=== PATIENT | male | born 1970 | race Caucasian/White ===

== ENCOUNTER 2019-10-21 14:25 | Inpatient (IN) | payer OTHER ==
[~2019-10-21] VITALS: Ht 182.9 cm; Wt 103.0 kg
[2019-10-21 15:09] LABS: BASO # 0.1 x10^3/uL (0.0-0.2); BASO % 1 % (0-3); EOS # 0.3 x10^3/uL (0.0-0.7); EOS % 5 % (0-3); HEMATOCRIT 41.8 % (39.0-53.0); HEMOGLOBIN 14.6 g/dL (13.0-17.5); LYMPH # 2.7 x10^3/uL (1.0-4.8); LYMPH % 40 % (24-48); MEAN CORPUSCULAR HEMOGLOBIN 32 pg (25-35); MEAN CORPUSCULAR HGB CONC 35 g/dL (31-37); MEAN CORPUSCULAR VOLUME 92 fL (79-100); MONO # 0.5 x10^3/uL (0.0-1.1); MONO % 8 % (0-9); NEUT # 3.1 x10^3/uL (1.8-7.7); NEUT % 46 % (31-73); PLATELET COUNT 304 x10^3/uL (140-400); RED BLOOD COUNT 4.52 x10^6/uL (4.30-5.70); RED CELL DISTRIBUTION WIDTH 13.2 % (11.5-14.5); WHITE BLOOD COUNT 6.8 x10^3/uL (4.0-11.0)
[2019-10-21 15:18] LABS: CALCIUM 8.7 mg/dL (8.5-10.1); CREATININE 1.1 mg/dL (0.7-1.3); GFR 72.1; POTASSIUM 3.7 mmol/L (3.5-5.1)
--- NOTE | 2019-10-21 15:20 | RAD ---
Exam performed: One view chest. Indication: Reason: palpiatations / Spl. Instructions: / History: Date of Service: 10/21/2019 3:02 PM Comparison: None available. Single AP upright portable view chest findings: Cardiomediastinal silhouette is mildly enlarged. No acute infiltrates, effusion or pneumothorax is detected. The bony structures are normal. Impression: Mild cardiomegaly. No acute pulmonary findings seen Electronically signed by: Marisa Awad MD (10/21/2019 3:17 PM) [facility]
[2019-10-21 15:24] LABS: ALBUMIN 3.8 g/dL (3.4-5.0); MAGNESIUM 1.7 mg/dL (1.8-2.4); TOTAL BILIRUBIN 0.3 mg/dL (0.2-1.0); TOTAL PROTEIN 7.8 g/dL (6.4-8.2)
--- NOTE | 2019-10-21 15:38 | PHYS DOC ---
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 Symptoms lasted for approximately 20 minutes and started while he was at rest watching TV, supposed to go to work at 4 PM. Patient states he has had history of similar symptoms a few years ago but only lasted for about 10 minutes and did not seek medical attention. States he drinks a half a pint of hard liquor daily, no history of withdrawal seizures or tremors. Denies any cocaine or methamphetamine abuse. States he stopped taking lisinopril 5 to 6 years ago. Symptoms have almost fully resolved but now c/o anxiety and increased stress because of his rapid heart rate. Recent trauma, surgeries, hospitalizations, long car rides or airplane rides. No history of DVT or PE. Mother with history of pacemaker and ACS. Father with history of hypertension. No family history of sudden unexplained under the age of 50, aortic disease or connective tissue disorder. ROS: Denies associated fever, chills, cough, dyspnea, hemoptysis, orthopnea, chest pain described as tearing or ripping, back pain, abdominal pain, nausea, vomiting, diarrhea, anorexia, leg swelling, rash, sore throat, headache, neck stiffness, head injury or dizziness. Heart Score: HEART Score for Chest Pain: HEART Score for Chest Pain Response (Comments) Value History Slighlty/Non-Suspicious 0 ECG Normal 0 Age >45 - < 65 1 Risk Factors >3 Risk Factors or Hx CAD 2 Total 3 Risk Factors: Risk Factors: DM, Current or recent (<one month) smoker, HTN, HLP, family history of CAD, obesity. Risk Scores: Score 0 - 3: 2.5% MACE over next 6 weeks - Discharge Home Score 4 - 6: 20.3% MACE over next 6 weeks - Admit for Clinical Observation Score 7 - 10: 72.7% MACE over next 6 weeks - Early Invasive Strategies Current Medications: Current Medications Medications (Trade) Dose Ordered Sig/Marlo Start Time Stop Time Status Last Admin Dose Admin Lorazepam (Ativan Inj) 1 mg 1X ONCE 10/21/19 15:15 10/21/19 15:16 DC 10/21/19 15:20 1 MG Allergies: Allergies: Allergies Coded Allergies Type Severity Reaction Last Updated Verified naproxen Allergy Intermediate Rash 10/21/19 Yes Physical Exam: PE: Constitutional: Well developed, well nourished, no acute distress, non-toxic appearance. [] HENT: Normocephalic, atraumatic, Eyes: EOMI, conjunctiva normal, no discharge. [] Neck: Normal range of motion, no tenderness, supple, no stridor. [] Cardiovascular: sinus tachycardiaLungs & Thorax: Bilateral breath sounds clear to auscultation [] Abdomen: Bowel sounds normal, soft, no tenderness, no masses, no pulsatile masses. [] Skin: Warm, dry, no erythema, no rash. [] Back: No tenderness, no CVA tenderness. [] Extremities: No tenderness, no cyanosis, no clubbing, ROM intact, no edema, no tremors Neurologic: Alert and oriented X 3, normal motor function, normal sensory function, no focal deficits noted. [] Psychologic: Affect normal, judgement normal, slight anxious Current Patient Data: Labs: Laboratory Tests Test 10/21/19 14:33 White Blood Count 6.8 x10^3/uL (4.0-11.0) Red Blood Count 4.52 x10^6/uL (4.30-5.70) Hemoglobin 14.6 g/dL (13.0-17.5) Hematocrit 41.8 % (39.0-53.0) Mean Corpuscular Volume 92 fL (79-100) Mean Corpuscular Hemoglobin 32 pg (25-35) Mean Corpuscular Hemoglobin Concent 35 g/dL (31-37) Red Cell Distribution Width 13.2 % (11.5-14.5) Platelet Count 304 x10^3/uL (140-400) Neutrophils (%) (Auto) 46 % (31-73) Lymphocytes (%) (Auto) 40 % (24-48) Monocytes (%) (Auto) 8 % (0-9) Eosinophils (%) (Auto) 5 % (0-3) H Basophils (%) (Auto) 1 % (0-3) Neutrophils # (Auto) 3.1 x10^3/uL (1.8-7.7) Lymphocytes # (Auto) 2.7 x10^3/uL (1.0-4.8) Monocytes # (Auto) 0.5 x10^3/uL (0.0-1.1) Eosinophils # (Auto) 0.3 x10^3/uL (0.0-0.7) Basophils # (Auto) 0.1 x10^3/uL (0.0-0.2) Sodium Level 141 mmol/L (136-145) Potassium Level 3.7 mmol/L (3.5-5.1) Chloride Level 103 mmol/L (98-107) Carbon Dioxide Level 28 mmol/L (21-32) Anion Gap 10 (6-14) Blood Urea Nitrogen 12 mg/dL (8-26) Creatinine 1.1 mg/dL (0.7-1.3) Estimated GFR (Cockcroft-Gault) 72.1 BUN/Creatinine Ratio 11 (6-20) Glucose Level 130 mg/dL (70-99) H Calcium Level 8.7 mg/dL (8.5-10.1) Magnesium Level 1.7 mg/dL (1.8-2.4) L Total Bilirubin 0.3 mg/dL (0.2-1.0) Aspartate Amino Transferase (AST) 39 U/L (15-37) H Alanine Aminotransferase (ALT) 75 U/L (16-63) H Alkaline Phosphatase 90 U/L (46-116) Troponin I Quantitative < 0.017 ng/mL (0.000-0.055) Total Protein 7.8 g/dL (6.4-8.2) Albumin 3.8 g/dL (3.4-5.0) Albumin/Globulin Ratio 1.0 (1.0-1.7) Laboratory Tests 10/21/19 14:33 Laboratory Tests 10/21/19 14:33 Vital Signs: Vital Signs Date Time Temp Pulse Resp B/P (MAP) Pulse Ox O2 Delivery O2 Flow Rate FiO2 10/21/19 14:27 98.2 111 16 232/136 (168) 99 Room Air 98.2 EKG: EKG: Sinus tachycardia at 117 bpm, no axis deviation, normal intervals, no terminal R in AVR, T wave inversion lead III and aVF, no ST elevations or ST depressions Howie EKG was sinus tachycardia at 147 bpm, no axis deviation, normal intervals, T wave inversion in 3 and aVF, no ST elevations or ST depressions no Q waves Radiology/Procedures: Radiology/Procedures: IMAGING REPORT Signed 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 PHYSICIAN: MONIKA RUCKER DO REASON: palpiatations PROCEDURE: CHEST AP ONLY Exam performed: One view chest. Indication: Reason: palpiatations / Spl. Instructions: / History: Date of Service: 10/21/2019 3:02 PM Comparison: None available. Single AP upright portable view chest findings: Cardiomediastinal silhouette is mildly enlarged. No acute infiltrates, effusion or pneumothorax is detected. The bony structures are normal. Impression: Mild cardiomegaly. No acute pulmonary findings seen Electronically signed by: Marisa Awad MD (10/21/2019 3:17 PM) [facility] DICTATED and SIGNED BY: MARISA AWAD MD DATE: 10/21/19 1517 Course & Med Decision Making: Course & Med Decision Making Pertinent Labs and Imaging studies reviewed. (See chart for details) Concern for sinus tachycardia and palpitations (no apparent signs of infection) in the setting of uncontrolled hypertension with no end organ damage, ekg with inferior TWIs. Patient with no active chest pain, difficulties breathing and is not confused. Chest x-ray showing cardiomegaly. Troponin is negative. D- dimer wnl. Patient's heart rate increased to the ED in the ED up to 150 and was started on banana bag, IV fluids and given 2 mg of Ativan. Concern for alcohol w/drawal. Was started on nicardipine drip. Will admit to the ICU, accepted by Dr. Estevez. Patient stable at time of admission and agrees with this plan. I have spoken with the patient and/or caregivers. I have explained the patient's condition, diagnosis and treatment plan based on the information available to me at this time. I have answered the patient's and/or caregivers questions and answered any concerns. The patient and/or caregivers have as good an understanding of the patient's diagnosis, condition and treatment plan as can be expected at this point. The patient has been stabilized within the capability of the emergency department. The patient will be transported for further care and management or will be moved to an observation or inpatient service. I have communicated with the staff or medical practitioner taking over this patient's care. Critical Care: Authorized and Performed by: Monika Rucker DO Total critical care time: approximately 40 minutes Due to a high probability of clinically significant, life threatening deterioration, the patient required my highest level of preparedness to intervene emergently and I personally spent this critical care time directly and personally managing the patient. This critical care time included obtaining a history; examining the patient; pulse oximetry; ventilator management if necessary; ordering and review of studies; arranging urgent treatment with devel opment of a management plan; evaluation of patient's response to treatment; frequent reassessment; discussion with patient/family; and, discussions with other providers. This critical care time was performed to assess and manage the high probability of imminent, life-threatening deterioration that could result in multi-organ failure. It was exclusive of separately billable procedures and treating other patients and teaching time. Please see MDM section and the rest of the note for further information on patient assessment and treatment. Dragon Disclaimer: Dragon Disclaimer: This electronic medical record was generated, in whole or in part, using a voice recognition dictation system. Departure Departure Impression: Primary Impression: Palpitations Additional Impressions: Sinus tachycardia Cardiomegaly Uncontrolled hypertension Disposition: ADMITTED INPATIENT Admitting Physician: LUPIS (Dr. Estevez) Condition: STABLE Referrals: NO PCP (PCP) Justicifation of Admission Dx: Justifications for Admission: Justification of Admission Dx: Yes Hypertension: Unstable Variant MONIKA RUCKER DO Oct 21, 2019 15:38
[2019-10-21 16:30] LABS: BARBITURATES NEG (NEG); BENZODIAZEPINES POS (NEG); CANNABINOIDS NEG (NEG); COCAINE NEG (NEG); METHADONE NEG (NEG); OPIATES NEG (NEG); PHENCYCLIDINE NEG (NEG)
[2019-10-21 16:31] LABS: AMPHETAMINE/METHAMPHETAMINE NEG (NEG)
[2019-10-21 17:19] LABS: BILIRUBIN,URINE NEGATIVE (NEG); CLARITY,URINE CLEAR; COLOR,URINE YELLOW; NITRITE,URINE NEGATIVE (NEG); PH,URINE 7.5 (<5.0-8.0); PROTEIN,URINE NEGATIVE (NEG-TRACE); UROBILINOGEN,URINE 0.2 mg/dL (0.2 mg/dL)
[2019-10-21 17:24] LABS: BACTERIA,URINE 0 /HPF (0-FEW); RBC,URINE 0 /HPF (0-2); WBC,URINE 0 /HPF (0-4)
[2019-10-21] MEDS ORDERED: hydrALAZINE 20 MG/ML VIAL. IVP ONE (17:45)
[2019-10-21] MEDS ORDERED: IV NORMAL SALINE 1000ML BAG 1,000 ML IV ONE (18:15)
[2019-10-21] MEDS ORDERED: ONDANSETRON PF 4 MG/2 ML VIAL. IV PRN (18:30)
[2019-10-21] MEDS ORDERED: MULTIVIT INFUSN,ADULT 4,VIT K 10 ML, THIAMINE INJ 100 MG, FOLIC ACID INJ 1 MG in IV NOR... IV ONE (18:30)
--- NOTE | 2019-10-21 18:39 | PDOC1 ---
History and Physical Date of Service: DOS: DATE: 10/21/19 TIME: 18:33 Chief Complaint: Chief Complain: Palpitations History of Present Illness: HPI: 48-year-old male past medical history of hypertension, does not take any medications, presents the ED with complaints of left-sided chest pressure and palpitations states he thought he was going to pass out. Symptoms lasted for approximately 20 minutes and started while he was at rest watching TV, supposed to go to work at 4 PM. Patient states he has had history of similar symptoms a few years ago but only lasted for about 10 minutes and did not seek medical attention. States he drinks a half a pint of hard liquor daily, no history of withdrawal seizures or tremors. Denies any cocaine or methamphetamine abuse. States he stopped taking lisinopril 5 to 6 years ago. Symptoms have almost fully resolved but now c/o anxiety and increased stress because of his rapid heart rate. Recent trauma, surgeries, hospitalizations, long car rides or airplane rides. No history of DVT or PE. ROS: Denies associated fever, chills, cough, dyspnea, hemoptysis, orthopnea, chest pain described as tearing or ripping, back pain, abdominal pain, nausea, vomiting, diarrhea, anorexia, leg swelling, rash, sore throat, headache, neck stiffness, head injury or dizziness. Past Medical/Surgical History: PMH/PSH: Past Medical History: Hypertension Past Surgical History: No Surgical History Allergies: Allergies: Coded Allergies: naproxen (Verified Allergy, Intermediate, Rash, 10/21/19) Family History: Family History: No family history of sudden unexplained under the age of 50, aortic disease or connective tissue disorder. Mother with history of pacemaker and ACS. Father with history of hypertension. 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 Patient usually will have at least 1 drink 5 days/week Current Medications: Current Medications Current Medications Lorazepam (Ativan Inj) 1 mg 1X ONCE IVP Last administered on 10/21/19at 15:20; Start 10/21/19 at 15:15; Stop 10/21/19 at 15:16; Status DC Hydralazine HCl (Apresoline Inj) 20 mg 1X ONCE IVP Last administered on 10/21/19at 17:45; Start 10/21/19 at 17:45; Stop 10/21/19 at 17:46; Status DC Lorazepam (Ativan Inj) 2 mg 1X ONCE IVP Last administered on 10/21/19at 18:13; Start 10/21/19 at 18:30; Stop 10/21/19 at 18:31; Status DC Multivitamins 10 ml/Thiamine HCl 100 mg/Folic Acid 1 mg/Sodium Chloride 1,011.2 ml @ 1,000.088 mls/hr 1X ONCE IV Last administered on 10/21/19at 18:19; Start 10/21/19 at 18:30; Stop 10/21/19 at 19:30 Sodium Chloride 1,000 ml @ 1,000 mls/hr 1X ONCE IV Last administered on 10/21/19at 18:13; Start 10/21/19 at 18:15; Stop 10/21/19 at 19:14 Nicardipine HCl 50 mg/Sodium Chloride 250 ml @ 25 mls/hr CONT PRN IV SEE I/O RECORD; Start 10/21/19 at 18:30 ROS: Review of Systems Review of System REVIEW OF SYSTEMS: GENERAL: Denies weakness SKIN: No bruising, hair changes or rashes. EYES: No blurred, double or loss of vision. NOSE AND THROAT: No history of nosebleeds, hoarseness or sore throat. HEART: No history of palpitations, chest pain or shortness of breath on exertion. LUNGS: Denies cough, hemoptysis, wheezing or shortness of breath. GASTROINTESTINAL: Denies changes in appetite, nausea, vomiting, diarrhea or constipation. GENITOURINARY: No history of frequency, urgency, hesitancy or nocturia. NEUROLOGIC: Denies history of numbness, tingling, or tremor. PSYCHIATRIC: No history of panic, anxiety or depression. ENDOCRINE: No history of heat or cold intolerance, polyuria or polydipsia. EXTREMITIES: Denies joint pain, pain on walking or stiffness. Physical Exam: Vital Signs: Vital Signs Date Time Temp Pulse Resp B/P (MAP) Pulse Ox O2 Delivery O2 Flow Rate FiO2 10/21/19 17:45 105 219/125 10/21/19 17:13 98 Room Air 10/21/19 14:30 20 10/21/19 14:27 98.2 98.2 Physcial Exam: GEN: No apparent distress. Alert and oriented HEENT: Normal cephalic, atraumatic, external auditory canals are patent EYES: Extraocular muscles are intact, pupil are equally round and reactive to light and accommodation MUSCULOSKELETAL: Well developed , well nourished, good range of motion ENDOCRINE: No thyromegaly was palpated LYMPHATICS: No cervical chain or axillary nodes were noted HEMATOPOIETIC: No bruising NECK: Supple, no JVD, no thyromegaly was noted LUNGS: Clear to auscultation in all lung mejia without rhonchi or wheezing HEART: RRR, S!, S2 present. Peripheral pulses intact, no obvious murmurs noted ABDOMEN: Soft, nontender. Positive bowel sounds, no organomegaly, normal bowel sounds EXTREMITIES: Without clubbing, cyanosis, or edema. Pedal pulses intact. Negative Homans sign NEUROLOGIC: Normal speech and tone. A&O x 3, moves all extremities, no obvious focal deficits PSYCHIATRIC: Normal affect, normal mood. Stable SKIN: No ulcerations or rashes, good skin turgor, no jaundice VASCULAR: Good capillary refill, neurovascular bundle appears to be intact Labs: Labs: Laboratory Tests Test 10/21/19 14:33 10/21/19 16:15 White Blood Count 6.8 x10^3/uL (4.0-11.0) Red Blood Count 4.52 x10^6/uL (4.30-5.70) Hemoglobin 14.6 g/dL (13.0-17.5) Hematocrit 41.8 % (39.0-53.0) Mean Corpuscular Volume 92 fL (79-100) Mean Corpuscular Hemoglobin 32 pg (25-35) Mean Corpuscular Hemoglobin Concent 35 g/dL (31-37) Red Cell Distribution Width 13.2 % (11.5-14.5) Platelet Count 304 x10^3/uL (140-400) Neutrophils (%) (Auto) 46 % (31-73) Lymphocytes (%) (Auto) 40 % (24-48) Monocytes (%) (Auto) 8 % (0-9) Eosinophils (%) (Auto) 5 % (0-3) Basophils (%) (Auto) 1 % (0-3) Neutrophils # (Auto) 3.1 x10^3/uL (1.8-7.7) Lymphocytes # (Auto) 2.7 x10^3/uL (1.0-4.8) Monocytes # (Auto) 0.5 x10^3/uL (0.0-1.1) Eosinophils # (Auto) 0.3 x10^3/uL (0.0-0.7) Basophils # (Auto) 0.1 x10^3/uL (0.0-0.2) D-Dimer (Cindy) < 0.27 ug/mlFEU Sodium Level 141 mmol/L (136-145) Potassium Level 3.7 mmol/L (3.5-5.1) Chloride Level 103 mmol/L (98-107) Carbon Dioxide Level 28 mmol/L (21-32) Anion Gap 10 (6-14) Blood Urea Nitrogen 12 mg/dL (8-26) Creatinine 1.1 mg/dL (0.7-1.3) Estimated GFR (Cockcroft-Gault) 72.1 BUN/Creatinine Ratio 11 (6-20) Glucose Level 130 mg/dL (70-99) Calcium Level 8.7 mg/dL (8.5-10.1) Magnesium Level 1.7 mg/dL (1.8-2.4) Total Bilirubin 0.3 mg/dL (0.2-1.0) Aspartate Amino Transf (AST/SGOT) 39 U/L (15-37) Alanine Aminotransferase (ALT/SGPT) 75 U/L (16-63) Alkaline Phosphatase 90 U/L (46-116) Troponin I Quantitative < 0.017 ng/mL (0.000-0.055) Total Protein 7.8 g/dL (6.4-8.2) Albumin 3.8 g/dL (3.4-5.0) Albumin/Globulin Ratio 1.0 (1.0-1.7) Ethyl Alcohol Level < 10 mg/dL (0-10) Urine Collection Type Unknown Urine Color Yellow Urine Clarity Clear Urine pH 7.5 (<5.0-8.0) Urine Specific [place] 1.010 (1.000-1.030) Urine Protein Negative mg/dL (NEG-TRACE) Urine Glucose (UA) Negative mg/dL (NEG) Urine Ketones (Stick) Negative mg/dL (NEG) Urine Blood Negative (NEG) Urine Nitrite Negative (NEG) Urine Bilirubin Negative (NEG) Urine Urobilinogen Dipstick 0.2 mg/dL (0.2 mg/dL) Urine Leukocyte Esterase Negative (NEG) Urine RBC 0 /HPF (0-2) Urine WBC 0 /HPF (0-4) Urine Bacteria 0 /HPF (0-FEW) Urine Opiates Screen Neg (NEG) Urine Methadone Screen Neg (NEG) Urine Barbiturates Neg (NEG) Urine Phencyclidine Screen Neg (NEG) Urine Amphetamine/Methamphetamine Neg (NEG) Urine Benzodiazepines Screen Pos (NEG) Urine Cocaine Screen Neg (NEG) Urine Cannabinoids Screen Neg (NEG) Urine Ethyl Alcohol Neg (NEG) Laboratory Tests Test 10/21/19 14:33 10/21/19 16:15 White Blood Count 6.8 x10^3/uL (4.0-11.0) Red Blood Count 4.52 x10^6/uL (4.30-5.70) Hemoglobin 14.6 g/dL (13.0-17.5) Hematocrit 41.8 % (39.0-53.0) Mean Corpuscular Volume 92 fL (79-100) Mean Corpuscular Hemoglobin 32 pg (25-35) Mean Corpuscular Hemoglobin Concent 35 g/dL (31-37) Red Cell Distribution Width 13.2 % (11.5-14.5) Platelet Count 304 x10^3/uL (140-400) Neutrophils (%) (Auto) 46 % (31-73) Lymphocytes (%) (Auto) 40 % (24-48) Monocytes (%) (Auto) 8 % (0-9) Eosinophils (%) (Auto) 5 % (0-3) Basophils (%) (Auto) 1 % (0-3) Neutrophils # (Auto) 3.1 x10^3/uL (1.8-7.7) Lymphocytes # (Auto) 2.7 x10^3/uL (1.0-4.8) Monocytes # (Auto) 0.5 x10^3/uL (0.0-1.1) Eosinophils # (Auto) 0.3 x10^3/uL (0.0-0.7) Basophils # (Auto) 0.1 x10^3/uL (0.0-0.2) D-Dimer (Cindy) < 0.27 ug/mlFEU Sodium Level 141 mmol/L (136-145) Potassium Level 3.7 mmol/L (3.5-5.1) Chloride Level 103 mmol/L (98-107) Carbon Dioxide Level 28 mmol/L (21-32) Anion Gap 10 (6-14) Blood Urea Nitrogen 12 mg/dL (8-26) Creatinine 1.1 mg/dL (0.7-1.3) Estimated GFR (Cockcroft-Gault) 72.1 BUN/Creatinine Ratio 11 (6-20) Glucose Level 130 mg/dL (70-99) Calcium Level 8.7 mg/dL (8.5-10.1) Magnesium Level 1.7 mg/dL (1.8-2.4) Total Bilirubin 0.3 mg/dL (0.2-1.0) Aspartate Amino Transf (AST/SGOT) 39 U/L (15-37) Alanine Aminotransferase (ALT/SGPT) 75 U/L (16-63) Alkaline Phosphatase 90 U/L (46-116) Troponin I Quantitative < 0.017 ng/mL (0.000-0.055) Total Protein 7.8 g/dL (6.4-8.2) Albumin 3.8 g/dL (3.4-5.0) Albumin/Globulin Ratio 1.0 (1.0-1.7) Ethyl Alcohol Level < 10 mg/dL (0-10) Urine Collection Type Unknown Urine Color Yellow Urine Clarity Clear Urine pH 7.5 (<5.0-8.0) Urine Specific [place] 1.010 (1.000-1.030) Urine Protein Negative mg/dL (NEG-TRACE) Urine Glucose (UA) Negative mg/dL (NEG) Urine Ketones (Stick) Negative mg/dL (NEG) Urine Blood Negative (NEG) Urine Nitrite Negative (NEG) Urine Bilirubin Negative (NEG) Urine Urobilinogen Dipstick 0.2 mg/dL (0.2 mg/dL) Urine Leukocyte Esterase Negative (NEG) Urine RBC 0 /HPF (0-2) Urine WBC 0 /HPF (0-4) Urine Bacteria 0 /HPF (0-FEW) Urine Opiates Screen Neg (NEG) Urine Methadone Screen Neg (NEG) Urine Barbiturates Neg (NEG) Urine Phencyclidine Screen Neg (NEG) Urine Amphetamine/Methamphetamine Neg (NEG) Urine Benzodiazepines Screen Pos (NEG) Urine Cocaine Screen Neg (NEG) Urine Cannabinoids Screen Neg (NEG) Urine Ethyl Alcohol Neg (NEG) Images: Images Impression: Mild cardiomegaly. No acute pulmonary findings seen Assessment/Plan Assessment/Plan Hypertensive urgency EtOH use with concern for withdrawal Hypomagnesemia Mild transaminitis Obesity class I Justifications for Admission Other Justification HERI CHU MD Oct 21, 2019 18:39
[2019-10-21] MEDS ORDERED: DOCUSATE SODIUM 100 MG CAPSULE. PO PRN (18:45)
[2019-10-21] MEDS ORDERED: ONDANSETRON PF 4 MG/2 ML VIAL. IVP PRN (18:45)
[2019-10-21] MEDS ORDERED: POTASSIUM CHLORIDE 20 MEQ TABLET.ER. PO PRN ×3 (18:45)
[2019-10-21] MEDS ORDERED: MAGNESIUM SULFATE 4GM 100 ML IV PRN (18:45)
[2019-10-21] MEDS ORDERED: SENNOSIDES 8.6 MG TABLET PO PRN (18:45)
[2019-10-21] MEDS ORDERED: POTASSIUM CHLORIDE 10MEQ 100 ML IV PRN ×3 (18:45)
[2019-10-21] MEDS ORDERED: POTASSIUM CHLORIDE 20MEQ 100 ML IV PRN ×3 (18:45)
[2019-10-21] MEDS: IV NORMAL SALINE 1000ML BAG 1,000 ML IV SCH (20:01)
[2019-10-21] MEDS ORDERED: LABETALOL 20 MG/4 ML DISP.SYRIN. IVP PRN (20:45)
[2019-10-21] MEDS ORDERED: ENOXAPARIN 40 MG/0.4 ML SYRINGE. SQ SCH (21:00)
[2019-10-21 21:15] VITALS: BP 186/83
--- NOTE | 2019-10-21 21:15 | NUR ---
pt admitted to room 107 from ED at this time. pt is alert and oriented x4, VSS on room air. Cardene gtt infusing, will monitor BP per protocol and titrate accordingly. pt oriented to room, call light, BRP, unit routines and plan of care; voices understanding. call light in reach, will continue to closely monitor.
[2019-10-21 22:00] VITALS: BP 179/83
[2019-10-21 23:00] VITALS: BP 168/117
[2019-10-22] VITALS (14 sets, daily range): BP systolic 115–161; BP diastolic 72–86
[2019-10-22] MEDS ORDERED: ACETAMINOPHEN 325 MG TABLET. PO PRN (03:45)
[2019-10-22] MEDS: IV NORMAL SALINE 1000ML BAG 1,000 ML IV SCH (07:00)
[2019-10-22] MEDS ORDERED: PANTOPRAZOLE 40 MG TABLET.DR. PO SCH (07:30)
[2019-10-22] MEDS ORDERED: FOLIC ACID 1 MG TABLET. PO SCH (09:00)
[2019-10-22] MEDS ORDERED: THIAMINE INJ 300 MG in IV DEXTROSE 5% 50 ML IV SCH (09:00)
--- NOTE | 2019-10-22 09:58 | PDOC ---
PROGRESS NOTES Date of Service: DATE: 10/22/19 TIME: 09:58 Chief Complaint Chief Complaint Images: Images Impression: Mild cardiomegaly. No acute pulmonary findings seen DISCHARGE DX Assessment/Plan Hypertensive urgency EtOH use with concern for withdrawal Hypomagnesemia Mild transaminitis Obesity class I [facility] start metoprolol xl 25 mg po daily t4 34 min cc time Justifications for Admission Justifications for Admission Other Justification accelerated htn History of Present Illness History of Present Illness History of Present Illness: HPI: 48-year-old male past medical history of hypertension, does not take any medications, presents the ED with complaints of left-sided chest pressure and palpitations states he thought he was going to pass out. Symptoms lasted for approximately 20 minutes and started while he was at rest watching TV, supposed to go to work at 4 PM. 10/20 Patient states he has had history of similar symptoms a few years ago but only lasted for about 10 minutes and did not seek medical attention. States he drinks a half a pint of hard liquor daily, no history of withdrawal seizures or tremors. Denies any cocaine or methamphetamine abuse. States he stopped taking lisinopril 5 to 6 years ago. Symptoms have almost fully resolved but now c/o anxiety and increased stress because of his rapid heart rate. Recent trauma, surgeries, hospitalizations, long car rides or airplane rides. No history of DVT or PE. ROS: Denies associated fever, chills, cough, dyspnea, hemoptysis, orthopnea, chest pain described as tearing or ripping, back pain, abdominal pain, nausea, vomiting, diarrhea, anorexia, leg swelling, rash, sore throat, headache, neck stiffness, head injury or dizziness. Past Medical/Surgical History: PMH/PSH: Past Medical History: Hypertension Past Surgical History: No Surgical History Allergies: Allergies: Coded Allergies: naproxen (Verified Allergy, Intermediate, Rash, 10/21/19) Family History: Family History: No family history of sudden unexplained under the age of 50, aortic disease or connective tissue disorder. Mother with history of pacemaker and ACS. Father with history of hypertension. 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 Patient usually will have at least 1 drink 5 days/week Vitals Vitals Vital Signs Date Time Temp Pulse Resp B/P (MAP) Pulse Ox O2 Delivery O2 Flow Rate FiO2 10/22/19 09:00 114 17 144/79 (100) Room Air 10/22/19 08:00 97.9 100 97.9 Physical Exam Physical Exam GEN: No apparent distress. Alert and oriented HEENT: Normal cephalic, atraumatic, external auditory canals are patent EYES: Extraocular muscles are intact, pupil are equally round and reactive to light and accommodation MUSCULOSKELETAL: Well developed , well nourished, good range of motion ENDOCRINE: No thyromegaly was palpated LYMPHATICS: No cervical chain or axillary nodes were noted HEMATOPOIETIC: No bruising NECK: Supple, no JVD, no thyromegaly was noted LUNGS: Clear to auscultation in all lung mejia without rhonchi or wheezing HEART: RRR, S!, S2 present. Peripheral pulses intact, no obvious murmurs noted ABDOMEN: Soft, nontender. Positive bowel sounds, no organomegaly, normal bowel sounds EXTREMITIES: Without clubbing, cyanosis, or edema. Pedal pulses intact. Negative Homans sign NEUROLOGIC: Normal speech and tone. A&O x 3, moves all extremities, no obvious focal deficits PSYCHIATRIC: Normal affect, normal mood. Stable SKIN: No ulcerations or rashes, good skin turgor, no jaundice VASCULAR: Good capillary refill, neurovascular bundle appears to be intact General: Alert, Oriented X3, Cooperative Heart: Regular rate Lungs: Clear Abdomen: Normal bowel sounds, Soft, No tenderness Extremities: No clubbing, No cyanosis, No edema Labs LABS Laboratory Tests Test 10/21/19 14:33 10/21/19 16:15 White Blood Count 6.8 x10^3/uL (4.0-11.0) Red Blood Count 4.52 x10^6/uL (4.30-5.70) Hemoglobin 14.6 g/dL (13.0-17.5) Hematocrit 41.8 % (39.0-53.0) Mean Corpuscular Volume 92 fL (79-100) Mean Corpuscular Hemoglobin 32 pg (25-35) Mean Corpuscular Hemoglobin Concent 35 g/dL (31-37) Red Cell Distribution Width 13.2 % (11.5-14.5) Platelet Count 304 x10^3/uL (140-400) Neutrophils (%) (Auto) 46 % (31-73) Lymphocytes (%) (Auto) 40 % (24-48) Monocytes (%) (Auto) 8 % (0-9) Eosinophils (%) (Auto) 5 % (0-3) Basophils (%) (Auto) 1 % (0-3) Neutrophils # (Auto) 3.1 x10^3/uL (1.8-7.7) Lymphocytes # (Auto) 2.7 x10^3/uL (1.0-4.8) Monocytes # (Auto) 0.5 x10^3/uL (0.0-1.1) Eosinophils # (Auto) 0.3 x10^3/uL (0.0-0.7) Basophils # (Auto) 0.1 x10^3/uL (0.0-0.2) D-Dimer (Cindy) < 0.27 ug/mlFEU Sodium Level 141 mmol/L (136-145) Potassium Level 3.7 mmol/L (3.5-5.1) Chloride Level 103 mmol/L (98-107) Carbon Dioxide Level 28 mmol/L (21-32) Anion Gap 10 (6-14) Blood Urea Nitrogen 12 mg/dL (8-26) Creatinine 1.1 mg/dL (0.7-1.3) Estimated GFR (Cockcroft-Gault) 72.1 BUN/Creatinine Ratio 11 (6-20) Glucose Level 130 mg/dL (70-99) Calcium Level 8.7 mg/dL (8.5-10.1) Magnesium Level 1.7 mg/dL (1.8-2.4) Total Bilirubin 0.3 mg/dL (0.2-1.0) Aspartate Amino Transf (AST/SGOT) 39 U/L (15-37) Alanine Aminotransferase (ALT/SGPT) 75 U/L (16-63) Alkaline Phosphatase 90 U/L (46-116) Troponin I Quantitative < 0.017 ng/mL (0.000-0.055) Total Protein 7.8 g/dL (6.4-8.2) Albumin 3.8 g/dL (3.4-5.0) Albumin/Globulin Ratio 1.0 (1.0-1.7) Ethyl Alcohol Level < 10 mg/dL (0-10) Urine Collection Type Unknown Urine Color Yellow Urine Clarity Clear Urine pH 7.5 (<5.0-8.0) Urine Specific [place] 1.010 (1.000-1.030) Urine Protein Negative mg/dL (NEG-TRACE) Urine Glucose (UA) Negative mg/dL (NEG) Urine Ketones (Stick) Negative mg/dL (NEG) Urine Blood Negative (NEG) Urine Nitrite Negative (NEG) Urine Bilirubin Negative (NEG) Urine Urobilinogen Dipstick 0.2 mg/dL (0.2 mg/dL) Urine Leukocyte Esterase Negative (NEG) Urine RBC 0 /HPF (0-2) Urine WBC 0 /HPF (0-4) Urine Bacteria 0 /HPF (0-FEW) Urine Opiates Screen Neg (NEG) Urine Methadone Screen Neg (NEG) Urine Barbiturates Neg (NEG) Urine Phencyclidine Screen Neg (NEG) Urine Amphetamine/Methamphetamine Neg (NEG) Urine Benzodiazepines Screen Pos (NEG) Urine Cocaine Screen Neg (NEG) Urine Cannabinoids Screen Neg (NEG) Urine Ethyl Alcohol Neg (NEG) Assessment and Plan Assessmemt and Plan Problems Medical Problems: (1) Cardiomegaly Status: Acute (2) Palpitations Status: Acute (3) Sinus tachycardia Status: Acute (4) Uncontrolled hypertension Status: Acute Comment Review of Relevant I have reviewed the following items jodee (where applicable) has been applied. Labs Laboratory Tests Test 10/21/19 14:33 10/21/19 16:15 White Blood Count 6.8 x10^3/uL (4.0-11.0) Red Blood Count 4.52 x10^6/uL (4.30-5.70) Hemoglobin 14.6 g/dL (13.0-17.5) Hematocrit 41.8 % (39.0-53.0) Mean Corpuscular Volume 92 fL (79-100) Mean Corpuscular Hemoglobin 32 pg (25-35) Mean Corpuscular Hemoglobin Concent 35 g/dL (31-37) Red Cell Distribution Width 13.2 % (11.5-14.5) Platelet Count 304 x10^3/uL (140-400) Neutrophils (%) (Auto) 46 % (31-73) Lymphocytes (%) (Auto) 40 % (24-48) Monocytes (%) (Auto) 8 % (0-9) Eosinophils (%) (Auto) 5 % (0-3) Basophils (%) (Auto) 1 % (0-3) Neutrophils # (Auto) 3.1 x10^3/uL (1.8-7.7) Lymphocytes # (Auto) 2.7 x10^3/uL (1.0-4.8) Monocytes # (Auto) 0.5 x10^3/uL (0.0-1.1) Eosinophils # (Auto) 0.3 x10^3/uL (0.0-0.7) Basophils # (Auto) 0.1 x10^3/uL (0.0-0.2) D-Dimer (Cindy) < 0.27 ug/mlFEU Sodium Level 141 mmol/L (136-145) Potassium Level 3.7 mmol/L (3.5-5.1) Chloride Level 103 mmol/L (98-107) Carbon Dioxide Level 28 mmol/L (21-32) Anion Gap 10 (6-14) Blood Urea Nitrogen 12 mg/dL (8-26) Creatinine 1.1 mg/dL (0.7-1.3) Estimated GFR (Cockcroft-Gault) 72.1 BUN/Creatinine Ratio 11 (6-20) Glucose Level 130 mg/dL (70-99) Calcium Level 8.7 mg/dL (8.5-10.1) Magnesium Level 1.7 mg/dL (1.8-2.4) Total Bilirubin 0.3 mg/dL (0.2-1.0) Aspartate Amino Transf (AST/SGOT) 39 U/L (15-37) Alanine Aminotransferase (ALT/SGPT) 75 U/L (16-63) Alkaline Phosphatase 90 U/L (46-116) Troponin I Quantitative < 0.017 ng/mL (0.000-0.055) Total Protein 7.8 g/dL (6.4-8.2) Albumin 3.8 g/dL (3.4-5.0) Albumin/Globulin Ratio 1.0 (1.0-1.7) Ethyl Alcohol Level < 10 mg/dL (0-10) Urine Collection Type Unknown Urine Color Yellow Urine Clarity Clear Urine pH 7.5 (<5.0-8.0) Urine Specific [place] 1.010 (1.000-1.030) Urine Protein Negative mg/dL (NEG-TRACE) Urine Glucose (UA) Negative mg/dL (NEG) Urine Ketones (Stick) Negative mg/dL (NEG) Urine Blood Negative (NEG) Urine Nitrite Negative (NEG) Urine Bilirubin Negative (NEG) Urine Urobilinogen Dipstick 0.2 mg/dL (0.2 mg/dL) Urine Leukocyte Esterase Negative (NEG) Urine RBC 0 /HPF (0-2) Urine WBC 0 /HPF (0-4) Urine Bacteria 0 /HPF (0-FEW) Urine Opiates Screen Neg (NEG) Urine Methadone Screen Neg (NEG) Urine Barbiturates Neg (NEG) Urine Phencyclidine Screen Neg (NEG) Urine Amphetamine/Methamphetamine Neg (NEG) Urine Benzodiazepines Screen Pos (NEG) Urine Cocaine Screen Neg (NEG) Urine Cannabinoids Screen Neg (NEG) Urine Ethyl Alcohol Neg (NEG) Laboratory Tests Test 10/21/19 14:33 10/21/19 16:15 White Blood Count 6.8 x10^3/uL (4.0-11.0) Red Blood Count 4.52 x10^6/uL (4.30-5.70) Hemoglobin 14.6 g/dL (13.0-17.5) Hematocrit 41.8 % (39.0-53.0) Mean Corpuscular Volume 92 fL (79-100) Mean Corpuscular Hemoglobin 32 pg (25-35) Mean Corpuscular Hemoglobin Concent 35 g/dL (31-37) Red Cell Distribution Width 13.2 % (11.5-14.5) Platelet Count 304 x10^3/uL (140-400) Neutrophils (%) (Auto) 46 % (31-73) Lymphocytes (%) (Auto) 40 % (24-48) Monocytes (%) (Auto) 8 % (0-9) Eosinophils (%) (Auto) 5 % (0-3) Basophils (%) (Auto) 1 % (0-3) Neutrophils # (Auto) 3.1 x10^3/uL (1.8-7.7) Lymphocytes # (Auto) 2.7 x10^3/uL (1.0-4.8) Monocytes # (Auto) 0.5 x10^3/uL (0.0-1.1) Eosinophils # (Auto) 0.3 x10^3/uL (0.0-0.7) Basophils # (Auto) 0.1 x10^3/uL (0.0-0.2) D-Dimer (Cindy) < 0.27 ug/mlFEU Sodium Level 141 mmol/L (136-145) Potassium Level 3.7 mmol/L (3.5-5.1) Chloride Level 103 mmol/L (98-107) Carbon Dioxide Level 28 mmol/L (21-32) Anion Gap 10 (6-14) Blood Urea Nitrogen 12 mg/dL (8-26) Creatinine 1.1 mg/dL (0.7-1.3) Estimated GFR (Cockcroft-Gault) 72.1 BUN/Creatinine Ratio 11 (6-20) Glucose Level 130 mg/dL (70-99) Calcium Level 8.7 mg/dL (8.5-10.1) Magnesium Level 1.7 mg/dL (1.8-2.4) Total Bilirubin 0.3 mg/dL (0.2-1.0) Aspartate Amino Transf (AST/SGOT) 39 U/L (15-37) Alanine Aminotransferase (ALT/SGPT) 75 U/L (16-63) Alkaline Phosphatase 90 U/L (46-116) Troponin I Quantitative < 0.017 ng/mL (0.000-0.055) Total Protein 7.8 g/dL (6.4-8.2) Albumin 3.8 g/dL (3.4-5.0) Albumin/Globulin Ratio 1.0 (1.0-1.7) Ethyl Alcohol Level < 10 mg/dL (0-10) Urine Collection Type Unknown Urine Color Yellow Urine Clarity Clear Urine pH 7.5 (<5.0-8.0) Urine Specific [place] 1.010 (1.000-1.030) Urine Protein Negative mg/dL (NEG-TRACE) Urine Glucose (UA) Negative mg/dL (NEG) Urine Ketones (Stick) Negative mg/dL (NEG) Urine Blood Negative (NEG) Urine Nitrite Negative (NEG) Urine Bilirubin Negative (NEG) Urine Urobilinogen Dipstick 0.2 mg/dL (0.2 mg/dL) Urine Leukocyte Esterase Negative (NEG) Urine RBC 0 /HPF (0-2) Urine WBC 0 /HPF (0-4) Urine Bacteria 0 /HPF (0-FEW) Urine Opiates Screen Neg (NEG) Urine Methadone Screen Neg (NEG) Urine Barbiturates Neg (NEG) Urine Phencyclidine Screen Neg (NEG) Urine Amphetamine/Methamphetamine Neg (NEG) Urine Benzodiazepines Screen Pos (NEG) Urine Cocaine Screen Neg (NEG) Urine Cannabinoids Screen Neg (NEG) Urine Ethyl Alcohol Neg (NEG) Medications Current Medications Lorazepam (Ativan Inj) 1 mg 1X ONCE IVP Last administered on 10/21/19at 15:20; Start 10/21/19 at 15:15; Stop 10/21/19 at 15:16; Status DC Hydralazine HCl (Apresoline Inj) 20 mg 1X ONCE IVP Last administered on 10/21/19at 17:45; Start 10/21/19 at 17:45; Stop 10/21/19 at 17:46; Status DC Lorazepam (Ativan Inj) 2 mg 1X ONCE IVP Last administered on 10/21/19at 18:13; Start 10/21/19 at 18:30; Stop 10/21/19 at 18:31; Status DC Multivitamins 10 ml/Thiamine HCl 100 mg/Folic Acid 1 mg/Sodium Chloride 1,011.2 ml @ 1,000.088 mls/hr 1X ONCE IV Last administered on 10/21/19at 18:19; Start 10/21/19 at 18:30; Stop 10/21/19 at 19:30; Status DC Sodium Chloride 1,000 ml @ 1,000 mls/hr 1X ONCE IV Last administered on 10/21/19at 18:13; Start 10/21/19 at 18:15; Stop 10/21/19 at 19:14; Status DC Nicardipine HCl 50 mg/Sodium Chloride 250 ml @ 25 mls/hr CONT PRN IV SEE I/O RECORD Last administered on 10/22/19at 03:59; Start 10/21/19 at 18:30 Ondansetron HCl (Zofran) 4 mg PRN Q8HRS PRN IV NAUSEA/VOMITING; Start 10/21/19 at 18:30; Stop 10/22/19 at 18:29 Sodium Chloride 1,000 ml @ 100 mls/hr Q10H IV Last administered on 10/21/19at 20:01; Start 10/21/19 at 18:30; Stop 10/22/19 at 18:29 Thiamine HCl 300 mg/Dextrose 53 ml @ 102 mls/hr DAILY IV Last administered on 10/22/19at 08:55; Start 10/22/19 at 09:00 Potassium Chloride (Klor-Con) 40 meq 1X PRN PO PER PROTOCOL; Start 10/21/19 at 18:45 Potassium Chloride/Water 100 ml @ 100 mls/hr Q1H PRN IV PER PROTOCOL; Start 10/21/19 at 18:45 Potassium Chloride/Water 100 ml @ 100 mls/hr Q1H PRN IV PER PROTOCOL; Start 10/21/19 at 18:45; Status UNV Potassium Chloride (Klor-Con) 40 meq Q2H PRN PO PER PROTOCOL; Start 10/21/19 at 18:45 Potassium Chloride/Water 100 ml @ 100 mls/hr Q1H PRN IV PER PROTOCOL; Start 10/21/19 at 18:45 Potassium Chloride/Water 100 ml @ 100 mls/hr Q1H PRN IV PER PROTOCOL; Start 10/21/19 at 18:45; Status UNV Potassium Chloride (Klor-Con) 40 meq Q2H PRN PO PER PROTOCOL; Start 10/21/19 at 18:45 Potassium Chloride/Water 100 ml @ 100 mls/hr Q1H PRN IV PER PROTOCOL; Start 10/21/19 at 18:45 Potassium Chloride/Water 100 ml @ 100 mls/hr Q1HR PRN IV PER PROTOCOL; Start 10/21/19 at 18:45; Status UNV Magnesium Sulfate 100 ml @ 50 mls/hr DAILY PRN IV PER PROTOCOL; Start 10/21/19 at 18:45; Stop 10/24/19 at 18:44 Enoxaparin Sodium (Lovenox 40mg Syringe) 40 mg Q24H SQ ; Start 10/21/19 at 21:00 Docusate Sodium (Colace) 100 mg PRN DAILY PRN PO HARD STOOLS; Start 10/21/19 at 18:45 Sennosides (Senna) 17.2 mg PRN BID PRN PO CONSTIPATION; Start 10/21/19 at 18:45 Ondansetron HCl (Zofran) 4 mg PRN Q6HRS PRN IVP NAUSEA/VOMITING; Start 10/21/19 at 18:45 Pantoprazole Sodium (Protonix) 40 mg DAILYAC PO Last administered on 10/22/19at 08:55; Start 10/22/19 at 07:30 Folic Acid (Folic Acid) 1 mg DAILY PO Last administered on 10/22/19at 09:00; Start 10/22/19 at 09:00 Lorazepam (Ativan) 2 mg Q6H PO Last administered on 10/22/19at 08:55; Start 10/21/19 at 19:00; Stop 10/23/19 at 01:01 Labetalol HCl (Normodyne Iv Push) 10 mg PRN Q2HR PRN IVP HYPERTENSION; Start 10/21/19 at 20:45 Acetaminophen (Tylenol) 650 mg PRN Q6HRS PRN PO MILD PAIN 1-3 Last administered on 10/22/19at 03:59; Start 10/22/19 at 03:45 Vitals/I & O Vital Sign - Last 24 Hours 10/21/19 10/21/19 10/21/19 10/21/19 14:27 14:30 14:35 14:43 Temp 98.2 98.2 Pulse 111 116 114 108 Resp 16 20 B/P (MAP) 232/136 (168) 228/126 (160) 218/130 (159) 224/132 (162) Pulse Ox 99 99 99 98 O2 Delivery Room Air Room Air Room Air Room Air 10/21/19 10/21/19 10/21/19 10/21/19 14:58 15:08 15:13 15:28 Pulse 106 114 114 112 B/P (MAP) 224/118 (153) 234/127 (162) 227/121 (156) 221/122 (155) Pulse Ox 99 99 98 99 O2 Delivery Room Air Room Air Room Air Room Air 10/21/19 10/21/19 10/21/19 10/21/19 15:43 15:58 16:13 16:28 Pulse 106 108 110 110 B/P (MAP) 220/119 (152) 214/117 (149) 223/124 (157) 218/126 (156) Pulse Ox 99 99 99 99 O2 Delivery Room Air Room Air Room Air Room Air 10/21/19 10/21/19 10/21/19 10/21/19 16:43 16:58 17:13 17:28 Pulse 108 106 106 104 B/P (MAP) 223/119 (153) 202/115 (144) 222/123 (156) 222/119 (153) Pulse Ox 98 99 98 99 O2 Delivery Room Air Room Air Room Air Room Air 10/21/19 10/21/19 10/21/19 10/21/19 17:43 17:45 17:53 17:58 Pulse 106 105 120 140 B/P (MAP) 219/125 (156) 219/125 224/129 (160) 211/120 (150) Pulse Ox 98 98 99 O2 Delivery Room Air Room Air Room Air 10/21/19 10/21/19 10/21/19 10/21/19 18:13 18:28 18:39 18:44 Pulse 148 136 126 122 B/P (MAP) 218/100 (139) 214/104 (140) 202/108 (139) 211/116 (147) Pulse Ox 98 99 98 98 O2 Delivery Room Air Room Air Room Air Room Air 10/21/19 10/21/19 10/21/19 10/21/19 18:49 18:54 18:59 19:04 Pulse 128 128 132 128 B/P (MAP) 198/101 (133) 212/106 (141) 223/112 (149) 218/108 (144) Pulse Ox 98 98 99 98 O2 Delivery Room Air Room Air Room Air Room Air 10/21/19 10/21/19 10/21/19 10/21/19 19:09 19:14 19:19 19:24 Pulse 132 128 126 126 B/P (MAP) 201/104 (136) 199/106 (137) 206/104 (138) 207/109 (141) Pulse Ox 99 97 97 98 O2 Delivery Room Air Room Air Room Air Room Air 10/21/19 10/21/19 10/21/19 10/21/19 19:29 19:34 19:39 19:44 Pulse 132 134 142 134 B/P (MAP) 212/119 (150) 215/114 (147) 218/152 (174) 191/94 (126) Pulse Ox 98 97 98 100 O2 Delivery Room Air Room Air Room Air Room Air 10/21/19 10/21/19 10/21/19 10/21/19 19:49 19:54 19:59 20:04 Pulse 128 128 126 130 B/P (MAP) 195/95 (128) 202/100 (134) 200/95 (130) 182/102 (128) Pulse Ox 99 99 99 99 O2 Delivery Room Air Room Air Room Air Room Air 10/21/19 10/21/19 10/21/19 10/21/19 20:09 20:14 20:19 20:23 Pulse 128 153 142 148 B/P (MAP) 195/99 (131) 195/113 (140) 175/87 (116) 180/89 (119) Pulse Ox 100 100 O2 Delivery Room Air Room Air Room Air Room Air 10/21/19 10/21/19 10/21/19 10/21/19 20:29 20:34 20:39 20:44 Pulse 140 140 140 138 B/P (MAP) 190/88 (122) 170/90 (116) 180/91 (120) 186/88 (120) Pulse Ox 95 99 95 98 O2 Delivery Room Air Room Air Room Air Room Air 10/21/19 10/21/19 10/21/19 10/21/19 20:49 20:54 20:59 21:04 Pulse 138 142 140 142 B/P (MAP) 191/87 (121) 186/88 (120) 171/85 (113) 169/85 (113) Pulse Ox 95 97 97 97 O2 Delivery Room Air Room Air Room Air Room Air 10/21/19 10/21/19 10/21/19 10/21/19 21:09 21:15 22:00 23:00 Temp 98.7 98.7 Pulse 142 142 134 123 Resp 18 18 20 B/P (MAP) 160/93 (115) 186/83 (117) 179/83 (115) 168/117 (134) Pulse Ox 97 99 O2 Delivery Room Air Room Air Room Air Room Air 10/22/19 10/22/19 10/22/19 10/22/19 00:00 01:00 02:00 03:00 Temp 98.4 98.4 Pulse 120 132 119 118 Resp 19 12 18 19 B/P (MAP) 153/77 (102) 161/82 (108) 137/77 (97) 142/78 (99) Pulse Ox 100 O2 Delivery Room Air Room Air Room Air Room Air 10/22/19 10/22/19 10/22/19 10/22/19 04:00 05:00 06:00 07:00 Temp 98.0 98.0 Pulse 112 106 102 106 Resp 19 18 17 17 B/P (MAP) 145/77 (99) 129/81 (97) 115/72 (86) 138/83 (101) Pulse Ox 100 O2 Delivery Room Air Room Air Room Air Room Air 10/22/19 10/22/19 10/22/19 08:00 08:00 09:00 Temp 97.9 97.9 Pulse 103 114 Resp 18 17 B/P (MAP) 142/81 (101) 144/79 (100) Pulse Ox 100 O2 Delivery Room Air Room Air Room Air Intake and Output 10/21/19 10/21/19 10/22/19 15:00 23:00 07:00 Intake Total 2011.2 ml 1072.7 ml Output Total 700 ml 900 ml Balance 1311.2 ml 172.7 ml Justicifation of Admission Dx: Justifications for Admission: Justification of Admission Dx: Yes Hypertension: Unstable Variant PARESH GAMBINO MD Oct 22, 2019 09:58
[2019-10-22] MEDS ORDERED: METOPROLOL SUCC 24HR ER 25 MG TAB.ER.24H. PO SCH (10:15)
--- NOTE | 2019-10-22 10:37 | PDOC2 ---
CARDIOLOGY CONSULT NOTE DATE OF SERVICE: DATE: 10/22/19 TIME: 10:32 CHIEF COMPLAINT: Rapid heartbeat HPI: 48-year-old male admitted to the hospital in the setting of palpitations and hypertensive urgency. He apparently was in his usual state of health when he began to experience some palpitations and was seen in the ER. ER evaluation did not reveal any obvious pathology except hypertensive urgency and concern for po ssible alcohol withdrawal. The discomfort lasted for 20 minutes. He used to be on lisinopril. He was admitted for further evaluation and treatment. He was started on a Cardene drip. No other acute cardiovascular concerns. Thorough ER evaluation reviewed. Denies any chest pain, fever, dyspnea. He has occ hot flashes. PMHX: 1. Hypertension 2. Alcohol abuse SOCHX: 25 pk yr hx of tobacco abuse, stopped smoking Has been drinking 1/2 pint daily FAMHX: HTN, DM2 CURRENT MEDS: Current Medications Medications (Trade) Dose Ordered Sig/Marlo Route PRN Reason Start Time Stop Time Status Last Admin Dose Admin Lorazepam (Ativan Inj) 1 mg 1X ONCE IVP 10/21/19 15:15 10/21/19 15:16 DC 10/21/19 15:20 Hydralazine HCl (Apresoline Inj) 20 mg 1X ONCE IVP 10/21/19 17:45 10/21/19 17:46 DC 10/21/19 17:45 Lorazepam (Ativan Inj) 2 mg 1X ONCE IVP 10/21/19 18:30 10/21/19 18:31 DC 10/21/19 18:13 Multivitamins 10 ml/Thiamine HCl 100 mg/Folic Acid 1 mg/Sodium Chloride 1,011.2 ml @ 1,000.088 mls/hr 1X ONCE IV 10/21/19 18:30 10/21/19 19:30 DC 10/21/19 18:19 Sodium Chloride 1,000 ml @ 1,000 mls/hr 1X ONCE IV 10/21/19 18:15 10/21/19 19:14 DC 10/21/19 18:13 Nicardipine HCl 50 mg/Sodium Chloride 250 ml @ 25 mls/hr CONT PRN IV SEE I/O RECORD 10/21/19 18:30 10/22/19 03:59 Sodium Chloride 1,000 ml @ 100 mls/hr Q10H IV 10/21/19 18:30 10/22/19 18:29 10/21/19 20:01 Thiamine HCl 300 mg/Dextrose 53 ml @ 102 mls/hr DAILY IV 10/22/19 09:00 10/22/19 08:55 Pantoprazole Sodium (Protonix) 40 mg DAILYAC PO 10/22/19 07:30 10/22/19 08:55 Folic Acid (Folic Acid) 1 mg DAILY PO 10/22/19 09:00 10/22/19 09:00 Lorazepam (Ativan) 2 mg Q6H PO 10/21/19 19:00 10/23/19 01:01 10/22/19 08:55 Acetaminophen (Tylenol) 650 mg PRN Q6HRS PRN PO MILD PAIN 1-3 10/22/19 03:45 10/22/19 03:59 ALLERGIES: Allergies Coded Allergies Type Severity Reaction Last Updated Verified naproxen Allergy Intermediate Rash 10/21/19 Yes ROS: Negative for 10 out of 14 systems reviewed unless otherwise mentioned above in HPI PHYSICAL EXAM: Vital Signs/I&O: Vital Signs Date Time Temp Pulse Resp B/P (MAP) Pulse Ox O2 Delivery O2 Flow Rate FiO2 10/22/19 10:00 108 16 133/81 (98) Room Air 10/22/19 08:00 97.9 100 97.9 I & O 10/21/19 10/21/19 10/22/19 15:00 23:00 07:00 Intake Total 2011.2 ml 1072.7 ml Output Total 700 ml 900 ml Balance 1311.2 ml 172.7 ml Physical Exam: GEN.: No apparent distress. Alert and oriented. HEENT: Head is normocephalic, atraumatic NECK: Supple. LUNGS: Clear to auscultation. HEART: RRR, S1, S2 present. Peripheral pulses intact ABDOMEN: Soft, nontender. Positive bowel sounds. EXTREMITIES: Without any cyanosis. NEUROLOGIC: Normal speech, normal tone PSYCHIATRIC: Normal affect, normal mood. SKIN: No ulcerations DIAGNOSTIC TESTING: EKG reveals sinus tachycardia Chest x-ray reviewed Echocardiogram pending Diagnostic laboratories reviewed Lab Laboratory Tests Test 10/21/19 14:33 10/21/19 16:15 White Blood Count 6.8 x10^3/uL (4.0-11.0) Red Blood Count 4.52 x10^6/uL (4.30-5.70) Hemoglobin 14.6 g/dL (13.0-17.5) Hematocrit 41.8 % (39.0-53.0) Mean Corpuscular Volume 92 fL (79-100) Mean Corpuscular Hemoglobin 32 pg (25-35) Mean Corpuscular Hemoglobin Concent 35 g/dL (31-37) Red Cell Distribution Width 13.2 % (11.5-14.5) Platelet Count 304 x10^3/uL (140-400) Neutrophils (%) (Auto) 46 % (31-73) Lymphocytes (%) (Auto) 40 % (24-48) Monocytes (%) (Auto) 8 % (0-9) Eosinophils (%) (Auto) 5 % (0-3) H Basophils (%) (Auto) 1 % (0-3) Neutrophils # (Auto) 3.1 x10^3/uL (1.8-7.7) Lymphocytes # (Auto) 2.7 x10^3/uL (1.0-4.8) Monocytes # (Auto) 0.5 x10^3/uL (0.0-1.1) Eosinophils # (Auto) 0.3 x10^3/uL (0.0-0.7) Basophils # (Auto) 0.1 x10^3/uL (0.0-0.2) D-Dimer (Cindy) < 0.27 ug/mlFEU Sodium Level 141 mmol/L (136-145) Potassium Level 3.7 mmol/L (3.5-5.1) Chloride Level 103 mmol/L (98-107) Carbon Dioxide Level 28 mmol/L (21-32) Anion Gap 10 (6-14) Blood Urea Nitrogen 12 mg/dL (8-26) Creatinine 1.1 mg/dL (0.7-1.3) Estimated GFR (Cockcroft-Gault) 72.1 BUN/Creatinine Ratio 11 (6-20) Glucose Level 130 mg/dL (70-99) H Calcium Level 8.7 mg/dL (8.5-10.1) Total Bilirubin 0.3 mg/dL (0.2-1.0) Aspartate Amino Transf (AST/SGOT) 39 U/L (15-37) H Alkaline Phosphatase 90 U/L (46-116) Total Protein 7.8 g/dL (6.4-8.2) Albumin 3.8 g/dL (3.4-5.0) Albumin/Globulin Ratio 1.0 (1.0-1.7) Ethyl Alcohol Level < 10 mg/dL (0-10) Urine Collection Type Unknown Urine Color Yellow Urine Clarity Clear Urine pH 7.5 (<5.0-8.0) Urine Specific [place] 1.010 (1.000-1.030) Urine Protein Negative mg/dL (NEG-TRACE) Urine Glucose (UA) Negative mg/dL (NEG) Urine Ketones (Stick) Negative mg/dL (NEG) Urine Blood Negative (NEG) Urine Nitrite Negative (NEG) Urine Bilirubin Negative (NEG) Urine Urobilinogen Dipstick 0.2 mg/dL (0.2 mg/dL) Urine Leukocyte Esterase Negative (NEG) Urine RBC 0 /HPF (0-2) Urine WBC 0 /HPF (0-4) Urine Bacteria 0 /HPF (0-FEW) Urine Opiates Screen Neg (NEG) Urine Methadone Screen Neg (NEG) Urine Barbiturates Neg (NEG) Urine Phencyclidine Screen Neg (NEG) Urine Amphetamine/Methamphetamine Neg (NEG) Urine Benzodiazepines Screen Pos (NEG) Urine Cocaine Screen Neg (NEG) Urine Cannabinoids Screen Neg (NEG) Urine Ethyl Alcohol Neg (NEG) Laboratory Tests 10/21/19 14:33 ASSESSMENT: 1. Hypertensive urgency 2. Possible alcohol withdrawl. PLAN: 1. Start Lisinopril 10mg daily. Uptitrate as BP allows. 2. Prelim echo wnl. No further testing needed. Pls call with questions. HALEIGH KEYES MD Oct 22, 2019 10:37
--- NOTE | 2019-10-22 11:25 | EKG ---
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
[2019-10-22] MEDS ORDERED: LISINOPRIL 10 MG TABLET PO ONE (12:45)
[2019-10-22 12:56] LABS: CALCIUM 8.3 mg/dL (8.5-10.1); CREATININE 0.9 mg/dL (0.7-1.3); GFR 90.8; POTASSIUM 3.5 mmol/L (3.5-5.1)
--- NOTE | 2019-10-22 14:06 | PDOC3 ---
Discharge Summary Date of Admission: Oct 21, 2019 Date of Discharge: Oct 22, 2019 Follow-Up: 3-5 days Admitting Diagnosis comment: DISCHARGE DX Assessment/Plan Hypertensive urgency EtOH use with concern for withdrawal Hypomagnesemia Mild transaminitis Obesity class I plan ICU BED Cardene drip echo cardiology consult start metoprolol xl 25 mg po daily t4 34 min cc time Justifications for Admission Justifications for Admission Other Justification accelerated htn History of Present Illness History of Present Illness History of Present Illness: HPI: 48-year-old male past medical history of hypertension, does not take any medications, presents the ED with complaints of left-sided chest pressure and palpitations states he thought he was going to pass out. Symptoms lasted for approximately 20 minutes and started while he was at rest watching TV, supposed to go to work at 4 PM. 10/20 Patient states he has had history of similar symptoms a few years ago but only lasted for about 10 minutes and did not seek medical attention. States he drinks a half a pint of hard liquor daily, no history of withdrawal seizures or tremors. Denies any cocaine or methamphetamine abuse. States he stopped taking lisinopril 5 to 6 years ago. Symptoms have almost fully resolved but now c/o anxiety and increased stress because of his rapid heart rate. Recent trauma, surgeries, hospitalizations, long car rides or airplane rides. No history of DVT or PE. ROS: Denies associated fever, chills, cough, dyspnea, hemoptysis, orthopnea, chest pain described as tearing or ripping, back pain, abdominal pain, nausea, vomiting, diarrhea, anorexia, leg swelling, rash, sore throat, headache, neck stiffness, head injury or dizziness. Past Medical/Surgical History: PMH/PSH: Past Medical History: Hypertension Past Surgical History: No Surgical History Allergies: Allergies: Coded Allergies: naproxen (Verified Allergy, Intermediate, Rash, 10/21/19) Family History: Family History: No family history of sudden unexplained under the age of 50, aortic disease or connective tissue disorder. Mother with history of pacemaker and ACS. Father with history of hypertension. 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 Patient usually will have at least 1 drink 5 days/week Vitals Vitals Vital Signs Date Time Temp Pulse Resp B/P (MAP) Pulse Ox O2 Delivery O2 Flow Rate FiO2 10/22/19 09:00 114 17 144/79 (100) Room Air 10/22/19 08:00 97.9 100 97.9 Physical Exam Physical Exam GEN: No apparent distress. Alert and oriented HEENT: Normal cephalic, atraumatic, external auditory canals are patent EYES: Extraocular muscles are intact, pupil are equally round and reactive to light and accommodation MUSCULOSKELETAL: Well developed , well nourished, good range of motion ENDOCRINE: No thyromegaly was palpated LYMPHATICS: No cervical chain or axillary nodes were noted HEMATOPOIETIC: No bruising NECK: Supple, no JVD, no thyromegaly was noted LUNGS: Clear to auscultation in all lung mejia without rhonchi or wheezing HEART: RRR, S!, S2 present. Peripheral pulses intact, no obvious murmurs noted ABDOMEN: Soft, nontender. Positive bowel sounds, no organomegaly, normal bowel sounds EXTREMITIES: Without clubbing, cyanosis, or edema. Pedal pulses intact. Negative Homans sign NEUROLOGIC: Normal speech and tone. A&O x 3, moves all extremities, no obvious focal deficits PSYCHIATRIC: Normal affect, normal mood. Stable SKIN: No ulcerations or rashes, good skin turgor, no jaundice VASCULAR: Good capillary refill, neurovascular bundle appears to be intact General: Alert, Oriented X3, Cooperative Heart: Regular rate Lungs: Clear Abdomen: Normal bowel sounds, Soft, No tenderness Extremities: No clubbing, No cyanosis, No edema FINAL DIAGNOSIS Problems Medical Problems: (1) Cardiomegaly Status: Acute (2) Palpitations Status: Acute (3) Sinus tachycardia Status: Acute (4) Uncontrolled hypertension Status: Acute Brief Hospital Course Mr. Murguia is a 48 old [sex] who presented with [ ACCELERATED HTN] CONDITION AT DISCHARGE: Improved Discharge Medications Current Medications Lorazepam (Ativan Inj) 1 mg 1X ONCE IVP Last administered on 10/21/19at 15:20; Start 10/21/19 at 15:15; Stop 10/21/19 at 15:16; Status DC Hydralazine HCl (Apresoline Inj) 20 mg 1X ONCE IVP Last administered on 09/23 at 17:45; Start 10/21/19 at 17:45; Stop 10/21/19 at 17:46; Status DC Lorazepam (Ativan Inj) 2 mg 1X ONCE IVP Last administered on 10/21/19at 18:13; Start 10/21/19 at 18:30; Stop 10/21/19 at 18:31; Status DC Multivitamins 10 ml/Thiamine HCl 100 mg/Folic Acid 1 mg/Sodium Chloride 1,011.2 ml @ 1,000.088 mls/hr 1X ONCE IV Last administered on 10/21/19at 18:19; Start 10/21/19 at 18:30; Stop 10/21/19 at 19:30; Status DC Sodium Chloride 1,000 ml @ 1,000 mls/hr 1X ONCE IV Last administered on 10/21/19at 18:13; Start 10/21/19 at 18:15; Stop 10/21/19 at 19:14; Status DC Nicardipine HCl 50 mg/Sodium Chloride 250 ml @ 25 mls/hr CONT PRN IV SEE I/O RECORD Last administered on 10/22/19at 03:59; Start 10/21/19 at 18:30 Ondansetron HCl (Zofran) 4 mg PRN Q8HRS PRN IV NAUSEA/VOMITING; Start 10/21/19 at 18:30; Stop 10/22/19 at 18:29 Sodium Chloride 1,000 ml @ 100 mls/hr Q10H IV Last administered on 10/21/19at 20:01; Start 10/21/19 at 18:30; Stop 10/22/19 at 12:39; Status DC Thiamine HCl 300 mg/Dextrose 53 ml @ 102 mls/hr DAILY IV Last administered on 10/22/19at 08:55; Start 10/22/19 at 09:00 Potassium Chloride (Klor-Con) 40 meq 1X PRN PO PER PROTOCOL; Start 10/21/19 at 18:45 Potassium Chloride/Water 100 ml @ 100 mls/hr Q1H PRN IV PER PROTOCOL; Start 10/21/19 at 18:45 Potassium Chloride/Water 100 ml @ 100 mls/hr Q1H PRN IV PER PROTOCOL; Start 10/21/19 at 18:45; Status UNV Potassium Chloride (Klor-Con) 40 meq Q2H PRN PO PER PROTOCOL; Start 10/21/19 at 18:45 Potassium Chloride/Water 100 ml @ 100 mls/hr Q1H PRN IV PER PROTOCOL; Start 10/21/19 at 18:45 Potassium Chloride/Water 100 ml @ 100 mls/hr Q1H PRN IV PER PROTOCOL; Start 10/21/19 at 18:45; Status UNV Potassium Chloride (Klor-Con) 40 meq Q2H PRN PO PER PROTOCOL; Start 10/21/19 at 18:45 Potassium Chloride/Water 100 ml @ 100 mls/hr Q1H PRN IV PER PROTOCOL; Start 10/21/19 at 18:45 Potassium Chloride/Water 100 ml @ 100 mls/hr Q1HR PRN IV PER PROTOCOL; Start 10/21/19 at 18:45; Status UNV Magnesium Sulfate 100 ml @ 50 mls/hr DAILY PRN IV PER PROTOCOL; Start 10/21/19 at 18:45; Stop 10/24/19 at 18:44 Enoxaparin Sodium (Lovenox 40mg Syringe) 40 mg Q24H SQ ; Start 10/21/19 at 21:00 Docusate Sodium (Colace) 100 mg PRN DAILY PRN PO HARD STOOLS; Start 10/21/19 at 18:45 Sennosides (Senna) 17.2 mg PRN BID PRN PO CONSTIPATION; Start 10/21/19 at 18:45 Ondansetron HCl (Zofran) 4 mg PRN Q6HRS PRN IVP NAUSEA/VOMITING; Start 10/21/19 at 18:45 Pantoprazole Sodium (Protonix) 40 mg DAILYAC PO Last administered on 10/22/19at 08:55; Start 10/22/19 at 07:30 Folic Acid (Folic Acid) 1 mg DAILY PO Last administered on 10/22/19at 09:00; Start 10/22/19 at 09:00 Lorazepam (Ativan) 2 mg Q6H PO Last administered on 10/22/19at 12:44; Start 10/21/19 at 19:00; Stop 10/23/19 at 01:01 Labetalol HCl (Normodyne Iv Push) 10 mg PRN Q2HR PRN IVP HYPERTENSION; Start 10/21/19 at 20:45 Acetaminophen (Tylenol) 650 mg PRN Q6HRS PRN PO MILD PAIN 1-3 Last administered on 10/22/19at 03:59; Start 10/22/19 at 03:45 Metoprolol Succinate (Toprol Xl) 25 mg DAILY PO Last administered on 10/22/19at 12:42; Start 10/22/19 at 10:15 Lisinopril (Prinivil) 10 mg 1X ONCE PO Last administered on 10/22/19at 12:43; Start 10/22/19 at 12:45; Stop 10/22/19 at 12:46; Status DC Lisinopril (Prinivil) 10 mg DAILY PO ; Start 10/23/19 at 09:00 Vital Signs Vital Signs Date Time Temp Pulse Resp B/P (MAP) Pulse Ox O2 Delivery O2 Flow Rate FiO2 10/22/19 13:00 110 16 157/85 (109) Room Air 10/22/19 12:00 98.3 98.3 10/22/19 08:00 100 Labs Laboratory Tests Test 10/21/19 14:33 10/21/19 16:15 10/22/19 12:30 White Blood Count 6.8 x10^3/uL (4.0-11.0) Red Blood Count 4.52 x10^6/uL (4.30-5.70) Hemoglobin 14.6 g/dL (13.0-17.5) Hematocrit 41.8 % (39.0-53.0) Mean Corpuscular Volume 92 fL (79-100) Mean Corpuscular Hemoglobin 32 pg (25-35) Mean Corpuscular Hemoglobin Concent 35 g/dL (31-37) Red Cell Distribution Width 13.2 % (11.5-14.5) Platelet Count 304 x10^3/uL (140-400) Neutrophils (%) (Auto) 46 % (31-73) Lymphocytes (%) (Auto) 40 % (24-48) Monocytes (%) (Auto) 8 % (0-9) Eosinophils (%) (Auto) 5 % (0-3) Basophils (%) (Auto) 1 % (0-3) Neutrophils # (Auto) 3.1 x10^3/uL (1.8-7.7) Lymphocytes # (Auto) 2.7 x10^3/uL (1.0-4.8) Monocytes # (Auto) 0.5 x10^3/uL (0.0-1.1) Eosinophils # (Auto) 0.3 x10^3/uL (0.0-0.7) Basophils # (Auto) 0.1 x10^3/uL (0.0-0.2) D-Dimer (Cindy) < 0.27 ug/mlFEU Sodium Level 141 mmol/L (136-145) 135 mmol/L (136-145) Potassium Level 3.7 mmol/L (3.5-5.1) 3.5 mmol/L (3.5-5.1) Chloride Level 103 mmol/L (98-107) 102 mmol/L (98-107) Carbon Dioxide Level 28 mmol/L (21-32) 23 mmol/L (21-32) Anion Gap 10 (6-14) 10 (6-14) Blood Urea Nitrogen 12 mg/dL (8-26) 9 mg/dL (8-26) Creatinine 1.1 mg/dL (0.7-1.3) 0.9 mg/dL (0.7-1.3) Estimated GFR (Cockcroft-Gault) 72.1 90.8 BUN/Creatinine Ratio 11 (6-20) Glucose Level 130 mg/dL (70-99) 115 mg/dL (70-99) Calcium Level 8.7 mg/dL (8.5-10.1) 8.3 mg/dL (8.5-10.1) Magnesium Level 1.7 mg/dL (1.8-2.4) Total Bilirubin 0.3 mg/dL (0.2-1.0) Aspartate Amino Transf (AST/SGOT) 39 U/L (15-37) Alanine Aminotransferase (ALT/SGPT) 75 U/L (16-63) Alkaline Phosphatase 90 U/L (46-116) Troponin I Quantitative < 0.017 ng/mL (0.000-0.055) Total Protein 7.8 g/dL (6.4-8.2) Albumin 3.8 g/dL (3.4-5.0) Albumin/Globulin Ratio 1.0 (1.0-1.7) Ethyl Alcohol Level < 10 mg/dL (0-10) Urine Collection Type Unknown Urine Color Yellow Urine Clarity Clear Urine pH 7.5 (<5.0-8.0) Urine Specific [place] 1.010 (1.000-1.030) Urine Protein Negative mg/dL (NEG-TRACE) Urine Glucose (UA) Negative mg/dL (NEG) Urine Ketones (Stick) Negative mg/dL (NEG) Urine Blood Negative (NEG) Urine Nitrite Negative (NEG) Urine Bilirubin Negative (NEG) Urine Urobilinogen Dipstick 0.2 mg/dL (0.2 mg/dL) Urine Leukocyte Esterase Negative (NEG) Urine RBC 0 /HPF (0-2) Urine WBC 0 /HPF (0-4) Urine Bacteria 0 /HPF (0-FEW) Urine Opiates Screen Neg (NEG) Urine Methadone Screen Neg (NEG) Urine Barbiturates Neg (NEG) Urine Phencyclidine Screen Neg (NEG) Urine Amphetamine/Methamphetamine Neg (NEG) Urine Benzodiazepines Screen Pos (NEG) Urine Cocaine Screen Neg (NEG) Urine Cannabinoids Screen Neg (NEG) Urine Ethyl Alcohol Neg (NEG) Free Thyroxine 1.10 ng/dL (0.76-1.46) Laboratory Tests Test 10/21/19 14:33 10/21/19 16:15 10/22/19 12:30 White Blood Count 6.8 x10^3/uL (4.0-11.0) Red Blood Count 4.52 x10^6/uL (4.30-5.70) Hemoglobin 14.6 g/dL (13.0-17.5) Hematocrit 41.8 % (39.0-53.0) Mean Corpuscular Volume 92 fL (79-100) Mean Corpuscular Hemoglobin 32 pg (25-35) Mean Corpuscular Hemoglobin Concent 35 g/dL (31-37) Red Cell Distribution Width 13.2 % (11.5-14.5) Platelet Count 304 x10^3/uL (140-400) Neutrophils (%) (Auto) 46 % (31-73) Lymphocytes (%) (Auto) 40 % (24-48) Monocytes (%) (Auto) 8 % (0-9) Eosinophils (%) (Auto) 5 % (0-3) Basophils (%) (Auto) 1 % (0-3) Neutrophils # (Auto) 3.1 x10^3/uL (1.8-7.7) Lymphocytes # (Auto) 2.7 x10^3/uL (1.0-4.8) Monocytes # (Auto) 0.5 x10^3/uL (0.0-1.1) Eosinophils # (Auto) 0.3 x10^3/uL (0.0-0.7) Basophils # (Auto) 0.1 x10^3/uL (0.0-0.2) D-Dimer (Cindy) < 0.27 ug/mlFEU Sodium Level 141 mmol/L (136-145) 135 mmol/L (136-145) Potassium Level 3.7 mmol/L (3.5-5.1) 3.5 mmol/L (3.5-5.1) Chloride Level 103 mmol/L (98-107) 102 mmol/L (98-107) Carbon Dioxide Level 28 mmol/L (21-32) 23 mmol/L (21-32) Anion Gap 10 (6-14) 10 (6-14) Blood Urea Nitrogen 12 mg/dL (8-26) 9 mg/dL (8-26) Creatinine 1.1 mg/dL (0.7-1.3) 0.9 mg/dL (0.7-1.3) Estimated GFR (Cockcroft-Gault) 72.1 90.8 BUN/Creatinine Ratio 11 (6-20) Glucose Level 130 mg/dL (70-99) 115 mg/dL (70-99) Calcium Level 8.7 mg/dL (8.5-10.1) 8.3 mg/dL (8.5-10.1) Magnesium Level 1.7 mg/dL (1.8-2.4) Total Bilirubin 0.3 mg/dL (0.2-1.0) Aspartate Amino Transf (AST/SGOT) 39 U/L (15-37) Alanine Aminotransferase (ALT/SGPT) 75 U/L (16-63) Alkaline Phosphatase 90 U/L (46-116) Troponin I Quantitative < 0.017 ng/mL (0.000-0.055) Total Protein 7.8 g/dL (6.4-8.2) Albumin 3.8 g/dL (3.4-5.0) Albumin/Globulin Ratio 1.0 (1.0-1.7) Ethyl Alcohol Level < 10 mg/dL (0-10) Urine Collection Type Unknown Urine Color Yellow Urine Clarity Clear Urine pH 7.5 (<5.0-8.0) Urine Specific [place] 1.010 (1.000-1.030) Urine Protein Negative mg/dL (NEG-TRACE) Urine Glucose (UA) Negative mg/dL (NEG) Urine Ketones (Stick) Negative mg/dL (NEG) Urine Blood Negative (NEG) Urine Nitrite Negative (NEG) Urine Bilirubin Negative (NEG) Urine Urobilinogen Dipstick 0.2 mg/dL (0.2 mg/dL) Urine Leukocyte Esterase Negative (NEG) Urine RBC 0 /HPF (0-2) Urine WBC 0 /HPF (0-4) Urine Bacteria 0 /HPF (0-FEW) Urine Opiates Screen Neg (NEG) Urine Methadone Screen Neg (NEG) Urine Barbiturates Neg (NEG) Urine Phencyclidine Screen Neg (NEG) Urine Amphetamine/Methamphetamine Neg (NEG) Urine Benzodiazepines Screen Pos (NEG) Urine Cocaine Screen Neg (NEG) Urine Cannabinoids Screen Neg (NEG) Urine Ethyl Alcohol Neg (NEG) Free Thyroxine 1.10 ng/dL (0.76-1.46) Allergies Allergies Coded Allergies Type Severity Reaction Last Updated Verified naproxen Allergy Intermediate Rash 10/21/19 Yes Disposition/Orders: D/C to Home Justicifation of Admission Dx: Justifications for Admission: Justification of Admission Dx: Yes Hypertension: Unstable Variant PARESH GAMBINO MD Oct 22, 2019 14:06
[2019-10-22] MEDS ORDERED: PANT40TA77 PO (14:08)
[2019-10-22] MEDS ORDERED: THIA100T57 PO (14:08)
[2019-10-22] MEDS ORDERED: Folic Acid PO (14:08)
[2019-10-22] MEDS ORDERED: METO-239 PO (14:08)
[2019-10-22] MEDS ORDERED: LISI10TA2 PO (14:08)
--- NOTE | 2019-10-22 14:09 | DISCH ---
DISCHARGE INSTRUCTIONS Condition on Discharge Condition on Discharge: Stable Activity After Discharge Activity Instructions for Disc: Activity as tolerated Lifting Instructions after Dis: No heavy lifting, No pulling or pushing Driving Instructions after Dis: Do not drive today Weight Bearing Status after Di: As tolerated Diet after Discharge Diet after Discharge: Cardiac, No Added Salt Liquid Texture: Thin Liquid Checks after Discharge Checks after discharge: Check blood press - daily Contacting the DR. after DC Call your doctor for: If your condition worsens Warfarin Follow-Up Warfarin Follow UP: NO ALCOHOL INTAKE PARESH GAMBINO MD Oct 22, 2019 14:09
--- NOTE | 2019-10-22 14:31 | NUR ---
SS following for discharge planning. SS reviewed pt chart and discussed with pt RN. Pt is from home and is currently on room air. Discharge order on the chart for home with self care.
--- NOTE | 2019-10-22 15:23 | NUR ---
Patient discharged home at 1510, was transported by patient's brother. IV's taken out prior to discharge. Patient took all belongings he came with, was given discharge packet and educated on the need to take blood pressure daily, avoid alcohol consumption, follow a cardiac diet with no added salt, and follow up with primary care physician in one week.
--- NOTE | 2019-10-22 16:21 | CARD ---
MR#: [id number] Date of Study: 10/22/2019 Ordering Physician: PARESH GAMBINO, Referring Physician: PARESH GAMBINO, Tech: Karla Lee APPROVED REPORT EXAM: Two-dimensional and M-mode echocardiogram with Doppler and color Doppler. Other Information Quality : FairHR: 108bpm INDICATION Palpitations Hypertension/HCVD 2D DIMENSIONS Left Atrium(2D)3.6 (1.6-4.0cm)IVSd1.3 (0.7-1.1cm) Aortic Root(2D)3.3 (2.0-3.7cm)LVDd5.2 (3.9-5.9cm) LVOT Diameter2.2 (1.8-2.4cm)PWd1.3 (0.7-1.1cm) LVDs3.7 (2.5-4.0cm)FS (%) 28.4 % SV69.1 ml Aortic Valve AoV Peak [place].159.4cm/sAoV VTI25.2cm AO Peak GR.10.2mmHgLVOT VTI 17.82cm AO Mean GR.6mmHg Mitral Valve MV E Gxvtxmhy26.9cm/sMV E Peak Gr.3mmHg MV DECEL [id number] A Blzfokbk70.6cm/s MV E Mean Gr.2mmHgE/A Ratio0.8 TDI Lateral E' P. V8.95cm/sMedial E' P. V7.47cm/s E/Lateral E'5.8E/Medial E'6.9 Tricuspid Valve TR P. Axbexcdf915wk/sRAP [id number] TR Peak Gr.22qjFuVIZI24koWz Pulmonary Vein S1 Fgholshq56.7cm/sS2 Nwmmiola64.29cm/s D2 Asqmyhfl37.3cm/s LEFT VENTRICLE The left ventricle is normal size. There is mild concentric left ventricular hypertrophy. The left ve ntricular systolic function is normal and the ejection fraction is within normal range. The Ejection Fraction is 50-55%. There is normal LV segmental wall motion. Transmitral Doppler flow pattern is Gra de I-abnormal relaxation pattern. RIGHT VENTRICLE The right ventricle is normal size. There is normal right ventricular wall thickness. The right ventr icular systolic function is normal. ATRIA The left atrium size is normal. The right atrium size is normal. The interatrial septum is intact wit h no evidence for an atrial septal defect or patent foramen ovale as noted on 2-D or Doppler imaging. AORTIC VALVE The aortic valve is normal in structure and function. Doppler and Color Flow revealed no significant aortic regurgitation. There is no significant aortic valvular stenosis. Calculated aortic valve area is 2.61 cm2 with maximum pressure gradient of 13 mmHg and mean pressure gradient of 7 mmHg. MITRAL VALVE The mitral valve is normal in structure and function. There is no evidence of mitral valve prolapse. There is no mitral valve stenosis. Doppler and Color-flow revealed trace mitral regurgitation. TRICUSPID VALVE The tricuspid valve is normal in structure and function. Doppler and Color Flow revealed trace tricus pid regurgitation with an eatimated PAP 34 mmHg. There is no tricuspid valve stenosis. PULMONIC VALVE The pulmonic valve is not well visualized. Doppler and Color Flow revealed no pulmonic valvular regur gitation. GREAT VESSELS The aortic root is normal in size. The IVC was not visualized. PERICARDIAL EFFUSION There is no evidence of significant pericardial effusion. Critical Notification Critical Value: No <Conclusion> The left ventricle is normal size. The left ventricular systolic function is normal and the ejection fraction is within normal range. The Ejection Fraction is 50-55%. There is mild concentric left ventricular hypertrophy. Doppler and Color Flow revealed no significant aortic regurgitation. There is no significant aortic valvular stenosis. Calculated aortic valve area is 2.61 cm2 with maximum pressure gradient of 13 mmHg and mean pressure gradient of 7 mmHg. Doppler and Color-flow revealed trace mitral regurgitation. Doppler and Color Flow revealed trace tricuspid regurgitation with an eatimated PAP 34 mmHg. Signed by : Shiva Morrison MD Electronically Approved : 10/22/2019 16:21:02
[2019-10-23] MEDS ORDERED: LISINOPRIL 10 MG TABLET PO SCH (09:00)
== END 2019-10-22 15:10 | disposition home or self-care (01) | DRG 305 ==
LOC: ER 14:25 → 1 WEST ICU 18:10
PROVIDERS: ADMIT Internal Medicine; ATTEND Internal Medicine
DX: I16.0 Hypertensive urgency (principal); E66.9 Obesity, unspecified; E78.5 Hyperlipidemia, unspecified; R00.0 Tachycardia, unspecified; E83.42 Hypomagnesemia; F41.9 Anxiety disorder, unspecified; I11.9 Hypertensive heart disease without heart failure; I25.10 Atherosclerotic heart disease of native coronary artery without angina pectoris; F43.9 Reaction to severe stress, unspecified; R74.0 Nonspecific elevation of levels of transaminase and lactic acid dehydrogenase [LDH]; Z87.891 Personal history of nicotine dependence; Z68.30 Body mass index [BMI] 30.0-30.9, adult; Z82.49 Family history of ischemic heart disease and other diseases of the circulatory system; Z83.3 Family history of diabetes mellitus
CPT/HCPCS: 36415; 71045; 80048; 80053; 80307; 81001; 83735; 84439; 84484; 85025; 85379; 93005; 93306; 96365; 96366; 96375; 96376; 99291; G0480; J0360; J2060; J3411; J3490; J7030; J7050; J7060; G0378